=== PATIENT | female | born 1945 | race Two or more races ===

== ENCOUNTER 2018-01-19 18:22 | Emergency (ER) | payer OTHER ==
[~2018-01-19] VITALS: Ht 144.8 cm; Wt 61.2 kg
== END 2018-01-19 22:42 | disposition home or self-care (01) ==
LOC: ER 18:22
DX: S80.12XA Contusion of left lower leg, initial encounter (principal); W01.198A Fall on same level from slipping, tripping and stumbling with subsequent striking against other object, initial encounter; Y93.01 Activity, walking, marching and hiking; Y92.018 Other place in single-family (private) house as the place of occurrence of the external cause; Y99.8 Other external cause status

== ENCOUNTER 2022-04-08 09:29 | Emergency (ER) | payer OTHER ==
[~2022-04-08] VITALS: Ht 149.9 cm; Wt 62.1 kg
[2022-04-08] MEDS ORDERED: TIROSINT50 MCG PO (09:41)
[2022-04-08] MEDS ORDERED: AVAPRO150 MG PO (09:42)
[2022-04-08] MEDS ORDERED: ATORVASTATIN CA40 MG PO (09:42)
[2022-04-08] MEDS ORDERED: NAPROXEN500 MG PO (15:09)
== END 2022-04-08 16:09 | disposition home or self-care (01) ==
LOC: ER 09:29
DX: M79.662 Pain in left lower leg (principal); E78.00 Pure hypercholesterolemia, unspecified; I10 Essential (primary) hypertension